=== PATIENT | male | born 1985 | race Caucasian/White ===

== ENCOUNTER 2022-01-17 23:50 | Emergency (ER) | payer OTHER ==
--- NOTE | 2022-01-17 23:58 | ED ---
Alcohol HPI - General Stated Complaint: ETOH Time Seen by Provider: 01/17/22 23:57 Source: RN notes reviewed, old records reviewed Mode of arrival: EMS Limitations: no limitations, altered mental status - History of Present Illness Initial Comments: This is a 36-year-old male to the emergency department for evaluation. Apparently evaluated patient will possible developing seen. Patient was intoxicated but able ambulate make is his own decisions MD Complaint: alcohol intoxication, alcohol withdrawal Last Drink: unknown Previous Visits for Alcohol Intoxication?: No Associated Symptoms: denies other symptoms Treatments Prior to Arrival: none Chronic Alcohol Use: Yes - Related Data Previous Rx's Medication Instructions Recorded Acetaminophen-Codeine 300-30mg 1 tab PO Q4H PRN #20 tablet 11/21/15 [Tylenol #3] Ibuprofen [Motrin] 600 mg PO Q8HR PRN #30 tab 11/21/15 Penicillin V Potassium [Pen Vee K] 500 mg PO QID #40 tab 11/21/15 Allergies Allergy/AdvReac Type Severity Reaction Status Date / Time No Known Allergies Allergy Verified 11/21/15 13:25 Review of Systems ROS Statement: Those systems with pertinent positive or pertinent negative responses have been documented in the HPI. ROS Other: All systems not noted in ROS Statement are negative. Past Medical History Past Medical History: No Reported History History of Any Multi-Drug Resistant Organisms: None Reported Past Surgical History: No Surgical Hx Reported Past Psychological History: No Psychological Hx Reported Past Alcohol Use History: Occasional Past Drug Use History: None Reported General Exam General appearance: appears intoxicated Neurological exam: Present: alert, oriented X3, normal gait Psychiatric exam: Present: agitated, anxious Course - Reevaluation(s) Reevaluation #1: 01/17/22 Medical record is reviewed Plan of going to evaluate the patient patient was not in the room Medical Decision Making - Medical Decision Making 36 male with intoxication signing out against medical advise reevaluation Disposition Clinical Impression: Altered mental state Disposition: Left Against Medical Advice Condition: Fair Instructions (If sedation given, give patient instructions): Altered Mental Status (ED) Is patient prescribed a controlled substance at d/c from ED?: No Referrals: None,Stated [Primary Care Provider] - 1-2 days Time of Disposition: 00:25
== END 2022-01-18 01:32 | disposition left against medical advice (07) ==
LOC: EC 23:50
DX: R41.82 Altered mental status, unspecified (principal)
CPT/HCPCS: 99284